=== PATIENT | female | born 1970 | race Caucasian/White ===

== ENCOUNTER → 2017-11-04 | Outpatient (CLI) | payer OTHER ==
--- NOTE | 2017-11-08 08:43 | MM ---
Reason for exam: screening (asymptomatic). Last mammogram was performed 1 year and 1 month ago. History: Family history of breast cancer in mother, breast cancer in maternal grandmother, and breast cancer in 2 maternal aunts. Physical Findings: A clinical breast exam by your physician is recommended on an annual basis and results should be correlated with mammographic findings. MG 3D Screening Mammo W/Cad Bilateral CC and MLO view(s) were taken. Prior study comparison: October 07, 2016, bilateral MG 3d screening mammo w/cad. September 30, 2015, bilateral MG screening mammo w CAD. The breast tissue is heterogeneously dense. This may lower the sensitivity of mammography. No significant changes when compared with prior studies. ASSESSMENT: Negative, BI-RAD 1 RECOMMENDATION: Routine screening mammogram of both breasts in 1 year.
== END | disposition home or self-care (01) ==
LOC: RADMAMWWP 10:10
PROVIDERS: ATTEND Obstetrics & Gynecology
DX: Z12.31 Encounter for screening mammogram for malignant neoplasm of breast (principal)
CPT/HCPCS: 77063; 77067

== ENCOUNTER → 2018-11-17 | Outpatient (CLI) | payer OTHER ==
--- NOTE | 2018-11-17 13:46 | MM ---
Reason for exam: screening (asymptomatic). Last mammogram was performed 1 year ago. History: Patient is postmenopausal. Family history of breast cancer in mother, breast cancer in maternal grandmother, and breast cancer in 2 maternal aunts. Physical Findings: A clinical breast exam by your physician is recommended on an annual basis and results should be correlated with mammographic findings. MG 3D Screening Mammo W/Cad Bilateral CC and MLO view(s) were taken. Prior study comparison: November 04, 2017, bilateral MG 3d screening mammo w/cad. October 07, 2016, bilateral MG 3d screening mammo w/cad. The breast tissue is heterogeneously dense. This may lower the sensitivity of mammography. There is chronic nodularity in the left breast. There is no discrete abnormality. ASSESSMENT: Benign, BI-RAD 2 RECOMMENDATION: Routine screening mammogram of both breasts in 1 year.
== END | disposition home or self-care (01) ==
LOC: RADMAMWWP 08:31
PROVIDERS: ATTEND Obstetrics & Gynecology
DX: Z12.31 Encounter for screening mammogram for malignant neoplasm of breast (principal); Z80.3 Family history of malignant neoplasm of breast
CPT/HCPCS: 77063; 77067

== ENCOUNTER 2018-11-29 23:31 | Emergency (ER) | payer OTHER ==
--- NOTE | 2018-11-29 23:57 | ED ---
Abdominal Pain HPI - General Chief Complaint: Abdominal Pain Stated Complaint: Upper Abd Pain Time Seen by Provider: 11/29/18 23:45 Source: patient Mode of arrival: ambulatory Limitations: no limitations - History of Present Illness Initial Comments: This patient is a 47-year-old woman who presents to be evaluated for epigastric pain that is been going on for approximately 3 hours. Patient states pain is moderate, aching, and it does feel as if it radiates around the right side. She has had a little bit of nausea. Patient denies any urinary symptoms. She states that she did have one loose bowel movement. No blood or dark tarry stools. She had eaten dinner approximately 2 hours prior. The patient states she had tried an antacid without much change, she also took without knowing much difference and also drank jamie mandie with not much change. MD Complaint: abdominal pain Onset/Timin -: hour(s) Location: epigastric Radiation: R flank Migration to: no migration Severity: moderate Quality: aching Consistency: constant Improves With: nothing Worsens With: nothing Associated Symptoms: nausea Treatments Prior to Arrival: antacids - Related Data Home Medications Medication Instructions Recorded Confirmed Losartan/Hydrochlorothiazide 1 each PO DAILY 07/01/16 11/29/18 [Losartan-Hctz 50-12.5 mg Tab] Previous Rx's Medication Instructions Recorded Famotidine [Pepcid] 20 mg PO BID #14 tablet 11/30/18 Lidocaine Viscous [Xylocaine 5 ml PO Q3HR PRN #100 ml 11/30/18 Viscous 2%] Allergies Allergy/AdvReac Type Severity Reaction Status Date / Time No Known Allergies Allergy Verified 07/05/16 11:20 Review of Systems ROS Statement: Those systems with pertinent positive or pertinent negative responses have been documented in the HPI. ROS Other: All systems not noted in ROS Statement are negative. Constitutional: Denies: fever, chills Respiratory: Denies: cough, dyspnea Cardiovascular: Denies: chest pain, palpitations, edema Gastrointestinal: Reports: abdominal pain, nausea. Denies: vomiting, diarrhea, constipation, melena, hematochezia Genitourinary: Denies: dysuria, hematuria Musculoskeletal: Denies: back pain Skin: Denies: rash Neurological: Denies: headache Past Medical History Past Medical History: Hypertension Additional Past Medical History / Comment(s): borderline cholesterol-no rx, History of Any Multi-Drug Resistant Organisms: None Reported Past Surgical History: Orthopedic Surgery, Uterine Ablation Additional Past Surgical History / Comment(s): mult D&C, laproscopy, left knee arthroscopy, carpal tunnel Past Anesthesia/Blood Transfusion Reactions: No Reported Reaction Past Psychological History: No Psychological Hx Reported Smoking Status: Never smoker Past Alcohol Use History: Rare Past Drug Use History: None Reported - Past Family History Mother Family Medical History: Cancer General Exam Limitations: no limitations General appearance: alert, in no apparent distress Head exam: Present: atraumatic, normocephalic Eye exam: Present: normal appearance. Absent: scleral icterus, conjunctival injection ENT exam: Present: normal oropharynx Neck exam: Present: normal inspection Respiratory exam: Present: normal lung sounds bilaterally. Absent: respiratory distress, wheezes, rales, rhonchi, stridor Cardiovascular Exam: Present: regular rate, normal rhythm, normal heart sounds. Absent: systolic murmur, diastolic murmur, rubs, gallop GI/Abdominal exam: Present: soft. Absent: distended, tenderness, guarding, rebound, rigid, mass, pulsatile mass, hernia Extremities exam: Present: normal inspection, normal capillary refill. Absent: pedal edema, calf tenderness Back exam: Present: normal inspection. Absent: CVA tenderness (R), CVA tenderness (L) Neurological exam: Present: alert Skin exam: Present: warm, dry, intact, normal color. Absent: rash Course Vital Signs 11/29/18 23:40 Temperature 98.5 F Pulse Rate 73 Respiratory 20 Rate Blood Pressure 153/90 O2 Sat by Pulse 98 Oximetry Medical Decision Making - Medical Decision Making Patient is a 47-year-old woman with epigastric abdominal pain. She has had marked relief of symptoms with GI cocktail. Lab studies are unremarkable. She is feeling well and would like to go home. Discussed with patient further care and follow-up as well as return parameters. Will provide Pepcid twice a day for 1 week. Patient also given prescription for right upper quadrant ultrasound to schedule at her convenience. - Lab Data Result diagrams: 11/29/18 23:35 11/29/18 23:35 Lab Results 11/29/18 11/29/18 11/29/18 Range/Units 23:35 23:35 23:35 WBC 7.6 (3.8-10.6) k/uL RBC 4.57 (3.80-5.40) m/uL Hgb 13.8 (11.4-16.0) gm/dL Hct 40.3 (34.0-46.0) % MCV 88.3 (80.0-100.0) fL MCH 30.2 (25.0-35.0) pg MCHC 34.2 (31.0-37.0) g/dL RDW 12.3 (11.5-15.5) % Plt Count 355 (150-450) k/uL Neutrophils % 75 % Lymphocytes % 18 % Monocytes % 4 % Eosinophils % 2 % Basophils % 0 % Neutrophils # 5.7 (1.3-7.7) k/uL Lymphocytes # 1.4 (1.0-4.8) k/uL Monocytes # 0.3 (0-1.0) k/uL Eosinophils # 0.1 (0-0.7) k/uL Basophils # 0.0 (0-0.2) k/uL Sodium 139 (137-145) mmol/L Potassium 3.7 (3.5-5.1) mmol/L Chloride 103 (98-107) mmol/L Carbon Dioxide 26 (22-30) mmol/L Anion Gap 10 mmol/L BUN 14 (7-17) mg/dL Creatinine 0.67 (0.52-1.04) mg/dL Est GFR (CKD-EPI)AfAm >90 (>60 ml/min/1.73 sqM) Est GFR (CKD-EPI)NonAf >90 (>60 ml/min/1.73 sqM) Glucose 91 (74-99) mg/dL Calcium 10.4 H (8.4-10.2) mg/dL Total Bilirubin 0.3 (0.2-1.3) mg/dL AST 22 (14-36) U/L ALT 26 (9-52) U/L Alkaline Phosphatase 46 (38-126) U/L Troponin I <0.012 (0.000-0.034) ng/mL Total Protein 7.6 (6.3-8.2) g/dL Albumin 4.5 (3.5-5.0) g/dL Amylase 38 (30-110) U/L Lipase 168 (23-300) U/L Urine Color Urine Appearance (Clear) Urine pH (5.0-8.0) Ur Specific [place] (1.001-1.035) Urine Protein (Negative) Urine Glucose (UA) (Negative) Urine Ketones (Negative) Urine Blood (Negative) Urine Nitrite (Negative) Urine Bilirubin (Negative) Urine Urobilinogen (<2.0) mg/dL Ur Leukocyte Esterase (Negative) Urine RBC (0-5) /hpf Urine WBC (0-5) /hpf Ur Squamous Epith Cells (0-4) /hpf Urine Bacteria (None) /hpf Urine Mucus (None) /hpf Urine HCG, Qual (Not Detectd) 11/30/18 11/30/18 Range/Units 00:10 00:10 WBC (3.8-10.6) k/uL RBC (3.80-5.40) m/uL Hgb (11.4-16.0) gm/dL Hct (34.0-46.0) % MCV (80.0-100.0) fL MCH (25.0-35.0) pg MCHC (31.0-37.0) g/dL RDW (11.5-15.5) % Plt Count (150-450) k/uL Neutrophils % % Lymphocytes % % Monocytes % % Eosinophils % % Basophils % % Neutrophils # (1.3-7.7) k/uL Lymphocytes # (1.0-4.8) k/uL Monocytes # (0-1.0) k/uL Eosinophils # (0-0.7) k/uL Basophils # (0-0.2) k/uL Sodium (137-145) mmol/L Potassium (3.5-5.1) mmol/L Chloride (98-107) mmol/L Carbon Dioxide (22-30) mmol/L Anion Gap mmol/L BUN (7-17) mg/dL Creatinine (0.52-1.04) mg/dL Est GFR (CKD-EPI)AfAm (>60 ml/min/1.73 sqM) Est GFR (CKD-EPI)NonAf (>60 ml/min/1.73 sqM) Glucose (74-99) mg/dL Calcium (8.4-10.2) mg/dL Total Bilirubin (0.2-1.3) mg/dL AST (14-36) U/L ALT (9-52) U/L Alkaline Phosphatase (38-126) U/L Troponin I (0.000-0.034) ng/mL Total Protein (6.3-8.2) g/dL Albumin (3.5-5.0) g/dL Amylase (30-110) U/L Lipase (23-300) U/L Urine Color Light Yellow Urine Appearance Clear (Clear) Urine pH 5.5 (5.0-8.0) Ur Specific [place] 1.005 (1.001-1.035) Urine Protein Negative (Negative) Urine Glucose (UA) Negative (Negative) Urine Ketones Negative (Negative) Urine Blood Small H (Negative) Urine Nitrite Negative (Negative) Urine Bilirubin Negative (Negative) Urine Urobilinogen <2.0 (<2.0) mg/dL Ur Leukocyte Esterase Negative (Negative) Urine RBC 3 (0-5) /hpf Urine WBC 1 (0-5) /hpf Ur Squamous Epith Cells 2 (0-4) /hpf Urine Bacteria Rare H (None) /hpf Urine Mucus Rare H (None) /hpf Urine HCG, Qual Not Detected (Not Detectd) - EKG Data -: EKG Interpreted by Ks EKG shows normal: sinus rhythm, axis (Normal), intervals (Normal), QRS complexes (Normal) Rate: normal (Approximately 70 bpm) Disposition Clinical Impression: Abdominal pain Disposition: HOME SELF-CARE Condition: Good Instructions (If sedation given, give patient instructions): Abdominal Pain (ED ) Prescriptions: Famotidine [Pepcid] 20 mg PO BID #14 tablet Lidocaine Viscous [Xylocaine Viscous 2%] 5 ml PO Q3HR PRN #100 ml PRN Reason: Sore Throat Is patient prescribed a controlled substance at d/c from ED?: No Referrals: Margo Kirkpatrick DO [Doctor of Osteopathic Medicine] - 1-2 days Shelby Aadms MD [STAFF PHYSICIAN] - 1-2 days
[2018-11-30] MEDS ORDERED: MAG HYDROX/AL HYDROX/SIMETH 30 ML, HYOSCYAMINE ELIXIR 10 ML, CIMETIDINE HCL 300 MG, LID... PO STA ×4 (00:10)
[2018-11-30 00:17] LABS: Basophils % (A) 0 %; Eosinophils # (A) 0.1 k/uL (0-0.7); Eosinophils % (A) 2 %; HCT 40.3 % (34.0-46.0); HGB 13.8 gm/dL (11.4-16.0); Lymphocytes # (A) 1.4 k/uL (1.0-4.8); Lymphocytes % (A) 18 %; MCH 30.2 pg (25.0-35.0); MCHC 34.2 g/dL (31.0-37.0); MCV 88.3 fL (80.0-100.0); Mean Platelet Volume 6.3; Monocytes # (A) 0.3 k/uL (0-1.0); Monocytes % (A) 4 %; Neutrophils # (A) 5.7 k/uL (1.3-7.7); Neutrophils % (A) 75 %; Platelet Count 355 k/uL (150-450); RBC 4.57 m/uL (3.80-5.40); RDW 12.3 % (11.5-15.5); WBC 7.6 k/uL (3.8-10.6)
[2018-11-30 00:23] LABS: ALT 26 U/L (9-52); AST 22 U/L (14-36); Albumin 4.5 g/dL (3.5-5.0); Alkaline Phosphatase 46 U/L (38-126); Amylase 38 U/L (30-110); Anion Gap 10 mmol/L; Blood Urea Nitrogen 14 mg/dL (7-17); Calcium 10.4 mg/dL (8.4-10.2); Carbon Dioxide 26 mmol/L (22-30); Chloride 103 mmol/L (98-107); Glucose 91 mg/dL (74-99); Lipase 168 U/L (23-300); Potassium 3.7 mmol/L (3.5-5.1); Sodium 139 mmol/L (137-145); Total Bilirubin 0.3 mg/dL (0.2-1.3); Total Protein 7.6 g/dL (6.3-8.2)
[2018-11-30 00:43] LABS: Appearance,Urine Clear (Clear); Bacteria,Urine Rare /hpf; Bilirubin,Urine Negative (Negative); Blood,Urine Small (Negative); Color,Urine Light Yellow; Glucose,Urine (UA) Negative (Negative); Ketones,Urine Negative (Negative); Leukocyte Esterase,Urine Negative (Negative); Mucus,Urine Rare /hpf; Nitrite,Urine Negative (Negative); PH, Urine 5.5 (5.0-8.0); Protein,Urine Negative (Negative); RBC,Urine 3 /hpf (0-5); Specific Gravity,Urine 1.005 (1.001-1.035); Squamous Epithelial Cell,Urine 2 /hpf (0-4); Urobilinogen,Urine <2.0 mg/dL (<2.0); WBC,Urine 1 /hpf (0-5)
[2018-11-30 01:40] VITALS: BP 127/82; PULSE 63; RESP 18; TEMP 98.4
== END 2018-11-30 01:41 | disposition home or self-care (01) ==
LOC: EC 23:31
DX: R10.13 Epigastric pain (principal); R11.0 Nausea; I10 Essential (primary) hypertension; Z79.899 Other long term (current) drug therapy
CPT/HCPCS: 36415; 80053; 81001; 81025; 82150; 83690; 84484; 85025; 93005; 99284

== ENCOUNTER → 2018-12-01 | Outpatient (CLI) | payer OTHER ==
--- NOTE | 2018-12-01 08:13 | US ---
EXAMINATION TYPE: US abdomen complete DATE OF EXAM: 12/01/2018 COMPARISON: NONE CLINICAL HISTORY: R10.84 Abdominal Pain. EXAM MEASUREMENTS: Liver Length: 13.6 cm Gallbladder Wall: 0.2 cm CBD: 0.4 cm Spleen: 8.9 cm Right Kidney: 10.1 x 4.1 x 4.4 cm Left Kidney: 9.5 x 5.3 x 4.4 cm Pancreas: Tail obscured by overlying bowel gas, visualized portions wnl Liver: wnl Gallbladder: wnl Evidence for sonographic Mccollum's sign: No CBD: wnl Spleen: wnl Right Kidney: No hydronephrosis or masses seen Left Kidney: No hydronephrosis or masses seen Upper IVC: wnl Abd Aorta: wnl The liver is homogenous. The intrahepatic portion of the IVC and proximal abdominal aorta are within normal limits. There is no evidence of cholelithiasis. Common bile duct is unremarkable. The visu alized portions of the pancreas are homogenous. The spleen is unremarkable. Kidneys are symmetric a nd free of hydronephrosis. No renal lesions are seen. IMPRESSION: Unremarkable abdominal ultrasound. No sonographic evidence of cholelithiasis nor acute ch olecystitis.
== END ==
LOC: RADUSWWP 07:31
PROVIDERS: ATTEND Emergency Medicine
DX: R10.84 Generalized abdominal pain (principal)
CPT/HCPCS: 76700

== ENCOUNTER → 2019-11-27 | Outpatient (CLI) | payer OTHER ==
--- NOTE | 2019-11-28 10:39 | MM ---
Reason for exam: screening (asymptomatic). Last mammogram was performed 1 year ago. History: Patient is postmenopausal. Family history of breast cancer in mother, breast cancer in maternal grandmother, and breast cancer in 2 maternal aunts. Physical Findings: A clinical breast exam by your physician is recommended on an annual basis and results should be correlated with mammographic findings. MG 3D Screening Mammo W/Cad Bilateral CC and MLO view(s) were taken. Prior study comparison: November 17, 2018, bilateral MG 3d screening mammo w/cad. November 04, 2017, bilateral MG 3d screening mammo w/cad. The breast tissue is heterogeneously dense. This may lower the sensitivity of mammography. No suspicious abnormality. No significant changes when compared with prior studies. ASSESSMENT: Negative, BI-RAD 1 RECOMMENDATION: Routine screening mammogram of both breasts in 1 year.
== END ==
LOC: RADMAMWWP 09:33
PROVIDERS: ATTEND Obstetrics & Gynecology
DX: Z12.31 Encounter for screening mammogram for malignant neoplasm of breast (principal)
CPT/HCPCS: 77063; 77067

== ENCOUNTER → 2020-12-01 | Outpatient (CLI) | payer OTHER ==
--- NOTE | 2020-12-03 08:42 | MM ---
Reason for exam: screening (asymptomatic). Last mammogram was performed 1 year ago. History: Family history of breast cancer in mother, breast cancer in maternal grandmother, and breast cancer in 2 maternal aunts. Took hormonal contraceptives for 12 years. Physical Findings: A clinical breast exam by your physician is recommended on an annual basis and results should be correlated with mammographic findings. MG 3D Screening Mammo W/Cad Bilateral CC and MLO view(s) were taken. Prior study comparison: November 27, 2019, bilateral MG 3d screening mammo w/cad. November 17, 2018, bilateral MG 3d screening mammo w/cad. The breast tissue is heterogeneously dense. This may lower the sensitivity of mammography. No significant changes when compared with prior studies. ASSESSMENT: Benign, BI-RAD 2 RECOMMENDATION: Routine screening mammogram of both breasts in 1 year.
== END | disposition home or self-care (01) ==
LOC: RADMAMWWP 07:50
PROVIDERS: ATTEND Obstetrics & Gynecology
DX: Z12.31 Encounter for screening mammogram for malignant neoplasm of breast (principal); Z80.3 Family history of malignant neoplasm of breast
CPT/HCPCS: 77063; 77067

== ENCOUNTER → 2021-12-03 | Outpatient (CLI) | payer OTHER ==
--- NOTE | 2021-12-04 13:31 | MM ---
Reason for exam: screening (asymptomatic). Last mammogram was performed 1 year ago. History: Family history of breast cancer in mother, breast cancer in maternal grandmother, and breast cancer in 2 maternal aunts. Took hormonal contraceptives for 12 years. Physical Findings: A clinical breast exam by your physician is recommended on an annual basis and results should be correlated with mammographic findings. MG 3D Screening Mammo W/Cad Bilateral CC and MLO view(s) were taken. Prior study comparison: December 01, 2020, bilateral MG 3d screening mammo w/cad. November 27, 2019, bilateral MG 3d screening mammo w/cad. The breast tissue is heterogeneously dense. This may lower the sensitivity of mammography. There is no discrete abnormality. No significant changes when compared with prior studies. ASSESSMENT: Negative, BI-RAD 1 RECOMMENDATION: Routine screening mammogram of both breasts in 1 year.
== END | disposition home or self-care (01) ==
LOC: RADMAMWWP 13:34
PROVIDERS: ATTEND Obstetrics & Gynecology
DX: Z12.31 Encounter for screening mammogram for malignant neoplasm of breast (principal); Z80.3 Family history of malignant neoplasm of breast
CPT/HCPCS: 77063; 77067

== ENCOUNTER → 2022-02-19 | Outpatient (CLI) | payer OTHER ==
--- NOTE | 2022-02-19 11:52 | BD ---
EXAMINATION TYPE: Axial Bone Density DATE OF EXAM: 02/19/2022 COMPARISON: NONE CLINICAL HISTORY: 51 years year old Female. ICD-10 CODE: N95.1 MENOPAUSAL AND FEMALE CLIMACTERIC STA JAMAR Height: 63.4 Weight: 146 FRAX RISK QUESTIONS: Family History (Parent hip fracture): YES History of Fracture in Adulthood: YES RISK FACTORS HISTORY OF: HX OF LT ANKLE FX AT AGE 49 YRS OLD, SURGICAL REPAIR Family History of Osteoporosis: YES, GR. MOTHER GR. AUNT AND MOTHER ALL WITH HIP FXS Active: YES Postmenopausal woman: ABLATION, AT AGE 41 YRS OLD, UNSURE ABOUT MENOPAUSE. Hyperparathyroidism: NO Adrenal Insufficiency: NO MEDICATIONS: Additional Medications: BP MEDS, VIT D AND CALCIUM.. Additional History: HYPERTENSION, HX OF ADULT FX EXAM MEASUREMENTS: Bone mineral densitometry was performed using the [employer] System. Bone mineral density as measured about the Lumbar spine is: ----- L1-L4(G/cm2): 1.336 T Score Values are as follows: ----- L1: 0.8 ----- L2: 0.4 ----- L3: 2.0 ----- L4: 1.6 ----- L1-L4: 1.3 Bone mineral density FIRST DEXA SCAN.....BASELINE STUDY Bone mineral density about the R hip (g/cm2): 1.001 Bone mineral density about the L hip (g/cm2): 1.056 T Score values are as follows: -----R Neck: -0.1 -----L Neck: 0.0 -----R Total: -0.1 -----L Total: 0.4 Bone mineral density BASELINE STUDY FRAX%s: The graph provided illustrates a 14.7% chance for a major osteoporotic fx and a 0.2% chance f or the hips probability for fx in 10 years time. IMPRESSION: No evidence for osteoporosis or osteopenia NOTE: T-SCORE=SD OF THE YOUNG ADULT MEAN.
== END | disposition home or self-care (01) ==
LOC: RADBDWWP 10:00
PROVIDERS: ATTEND Obstetrics & Gynecology
DX: N95.1 Menopausal and female climacteric states (principal)
CPT/HCPCS: 77080

== ENCOUNTER 2022-05-18 09:02 | Day surgery (SDC) | payer OTHER ==
[~2022-05-18 09:02] MED LIST: LACTATED RINGERS 1,000 ML IV SCH; LIDOCAINE 1% (10MG/ML) FOR IV START INTRADERMA PRN
[2022-05-18 09:26] VITALS: TEMP 97.7
[2022-05-18] MEDS ORDERED: PROPOFOL 10 MG/ML 20 ML VIAL IV ONE (10:28)
--- NOTE | 2022-05-18 10:46 | P.PCN ---
Date of Procedure: 05/18/22 Procedure(s) Performed: BRIEF HISTORY: Patient is a 51-year-old pleasant female scheduled for an elective colonoscopy as a part of screening for colorectal neoplasia. PROCEDURE PERFORMED: Colonoscopy. PREOPERATIVE DIAGNOSIS: Screening for colon cancer. IV sedation per Anesthesia. PROCEDURE: After informed consent was obtained, the patient, was brought into the endoscopy unit. IV sedation was administered by Anesthesia under continuous monitoring. Digital rectal examination was normal. Initially the Olympus CF-160 flexible video colonoscope was then inserted in the rectum, gradually advanced into the cecum without any difficulty. Careful examination was performed as the scope was gradually being withdrawn. Ileocecal valve and the appendiceal orifice were visualized and appeared normal. Prep was excellent. Mucosa of the cecum, ascending colon, transverse colon, descending colon, sigmoid colon, and rectum appeared normal. Retroflexion was performed in the rectum and and 1 large prolapsing hemorrhoids were seen. The patient tolerated the procedure well. IMPRESSION: Normal-appearing colon from rectum to cecum no evidence of colorectal neoplasia. One large prolapsing internal hemorrhoids RECOMMENDATIONS: Findings of this examination were discussed with the patient as well as her family. She was advised to have a repeat screening colonoscopy in 10 years. She was advised to be a high-fiber diet, take fiber supplements a regular basis and await straining and constipation.
[2022-05-18 11:11] VITALS: BP 115/75; PULSE 63; RESP 16
== END 2022-05-18 11:31 | disposition home or self-care (01) ==
LOC: ORWHC2ENDO 09:02
PROVIDERS: ATTEND Internal Medicine Gastroenterology
DX: Z12.11 Encounter for screening for malignant neoplasm of colon (principal); K64.8 Other hemorrhoids; I10 Essential (primary) hypertension; Z98.890 Other specified postprocedural states; Z97.2 Presence of dental prosthetic device (complete) (partial); Z79.899 Other long term (current) drug therapy
CPT/HCPCS: 81025; J2704; G0121

== ENCOUNTER → 2022-12-30 | Outpatient (CLI) | payer OTHER ==
--- NOTE | 2023-01-02 12:47 | MM ---
Reason for Exam: Screening (asymptomatic). Last mammogram was performed 1 year(s) and 1 month(s) ago. Patient History: Menarche at age 12. First Full-Term at age 30. Late child-bearing (after 30). Patient used Hormonal Contraceptives for 12 years. Maternal grandmother had breast cancer. Maternal aunt had breast cancer. Maternal aunt had breast cancer. Mother had breast cancer. Risk Values: Cindy 5 year model risk: 2.1%. NCI Lifetime model risk: 16.7%. Prior Study Comparison: 11/27/2019 Bilateral Screening Mammogram, [facility]. 12/01/2020 Bilateral Screening Mammogram, [facility]. 12/03/2021 Bilateral Screening Mammogram, [facility]. Tissue Density: There are scattered fibroglandular densities. Findings: Analyzed By CAD. Benign intramammary lymph node upper outer quadrant left breast is unchanged. There is no suspicious group of microcalcifications or new suspicious mass in either breast. Overall Assessment: Benign, BI-RAD 2 Management: Screening Mammogram of both breasts in 1 year. 1. Patient should continue monthly self breast exams. 2. A clinical breast exam by your physician is recommended on an annual basis. 3. This exam should not preclude additional follow-up of suspicious palpable abnormalities. Electronically signed and approved by: Benjamin Emanuel M.D. Radiologist
== END | disposition home or self-care (01) ==
LOC: RADMAMWWP 14:48
PROVIDERS: ATTEND Obstetrics & Gynecology
DX: Z12.31 Encounter for screening mammogram for malignant neoplasm of breast (principal); Z80.3 Family history of malignant neoplasm of breast
CPT/HCPCS: 77063; 77067

== ENCOUNTER → 2024-01-18 | Outpatient (CLI) | payer OTHER ==
--- NOTE | 2024-01-19 11:56 | MR ---
EXAMINATION TYPE: MR shoulder RT wo con DATE OF EXAM: 01/18/2024 COMPARISON: Outside right shoulder x-rays January 05, 2024 HISTORY: Right shoulder pain for 6 months with difficulty raising arm overhead TECHNIQUE: Multiplanar, multisequence imaging of the right shoulder is performed without contrast. FINDINGS: Rotator Cuff: Intact supraspinatus and infraspinatus tendons. Intact subscapularis tendon. Rotator cu ff muscle bulk preserved. Acromioclavicular Joint: Oauj-vm-ldrabnbm narrowing greatest posteriorly. Mild/moderate capsular hype rtrophy. Glenohumeral Joint: Small joint effusion. No significant spurring. Labrum: The labrum appears grossly intact given limitation of non-arthrogram study. Biceps Tendon: The long head of biceps is in normal location within bicipital groove. Bone marrow signal: Subchondral cystic change superolateral aspect of the humeral head. Other: No additional significant abnormality is appreciated. IMPRESSION: No rotator cuff or labral tear is seen.
== END | disposition home or self-care (01) ==
LOC: RADMRIMAIN 20:22
PROVIDERS: ATTEND Orthopaedic Surgery
DX: M25.511 Pain in right shoulder (principal)

== ENCOUNTER 2024-03-20 08:31 | Day surgery (SDC) | payer OTHER ==
[2024-03-16 09:43] VITALS: BMI 24.9
--- NOTE | 2024-03-19 08:44 | P.HPOR ---
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 She notes she is having pain with any attempted overhead use. She is having night symptoms. She's tried therapy in addition to a steroid pack without much relief. Review of Systems Per HPI Past Medical History Past Medical History: Hypertension Additional Past Medical History / Comment(s): borderline cholesterol-no rx, CUREENTLY ON KEFLEX SINCE 03/14/24 FOR INFECTED RT GREAT TOE-INSTRUCTED TO NOTIFY DR. HARRISON History of Any Multi-Drug Resistant Organisms: None Reported Past Surgical History: Orthopedic Surgery, Uterine Ablation Additional Past Surgical History / Comment(s): mult D&C, laparoscopy, left knee arthroscopy, carpal tunnel, ORIF left ankle 2020 Past Anesthesia/Blood Transfusion Reactions: No Reported Reaction Smoking Status: Never smoker - Past Family History Mother Family Medical History: Cancer Medications and Allergies Home Medications Medication Instructions Recorded Confirmed Type Calcium Carbonate [Calcium] 600 mg PO DAILY 05/14/22 03/16/24 History Cholecalciferol [Vitamin D3 (25 25 mcg PO DAILY 05/14/22 03/16/24 History Mcg = 1000 Iu)] Losartan [Cozaar] 50 mg PO DAILY 05/14/22 03/16/24 History Multivitamins, Thera [Multivitamin 1 tab PO DAILY 05/14/22 03/16/24 History (formulary)] hydroCHLOROthiazide [Hydrodiuril] 12.5 mg PO DAILY 05/14/22 03/16/24 History Cephalexin [Keflex] 500 mg PO Q8HR 03/16/24 03/16/24 History Allergies Allergy/AdvReac Type Severity Reaction Status Date / Time No Known Allergies Allergy Verified 03/16/24 09:08 Physical Examination - Shoulder right Tenderness with palpation: anterior, bicipital groove Pain: with abduction, with forward flexion ROM: forward flexion: 140 degrees ROM: internal rotation: lower lumbar ROM: external rotation: 40 degrees Crepitus with motion: Yes Strength: abduction: 5/5 Strength: external rotation: 5/5 Tests: internal impingement tests: positive, external impingment tests: positive Results Patient is a well-developed well-nourished female approximately 5 foot 4, 145 pounds of mesomorphic habitus. HEENT exam is nonfocal, neck supple. She's tender about the anterior subacromial space the right shoulder. Passive forward elevation is 145. Schaffer, Neer sign are positive. Her distal neurovascular appears intact in the right upper extremity. Assessment and Plan Assessment: Right shoulder adhesive capsulitis Plan: Talked to the patient at length regarding her condition at this point she is failing to progress with conservative measures. After a thorough discussion shaft proceed with manipulation right shoulder under anesthesia along with a subacromial cortisone injection. We will likely perform that as a outpatient procedure utilizing IV sedation. Risks and benefits were discussed at length in layman's terms.
[~2024-03-20 08:31] MED LIST changes: -LACTATED RINGERS 1,000 ML IV SCH; +ONDANSETRON 4 MG/2 ML VIAL IVP ONE
[2024-03-20] MEDS: IV FLUID CONTINUATION 1,000 ML IV ONE (08:42)
[2024-03-20 08:47] VITALS: TEMP 97.6
[2024-03-20] MEDS: LACTATED RINGERS 1,000 ML IV SCH (09:08)
[2024-03-20] MEDS: KETOROLAC 15 MG/ML 1 ML VIAL IVP STA (09:45)
[2024-03-20] MEDS ORDERED: fentaNYL (PF) 50 MCG/ML 2 ML AMP ONE (10:10)
[2024-03-20] MEDS ORDERED: LIDOCAINE 1% INJ 10MG/ML (20 ML MDV) ONE (10:10)
[2024-03-20] MEDS ORDERED: PROPOFOL 10 MG/ML 20 ML VIAL IV ONE (10:10)
--- NOTE | 2024-03-20 10:25 | P.OP ---
Date of Procedure: 03/20/24 Preoperative Diagnosis: Right shoulder adhesive capsulitis Postoperative Diagnosis: Same Procedure(s) Performed: Manipulation under anesthesia right shoulder/subacromial cortisone injection Anesthesia: MAC Surgeon: Mehul Holden Estimated Blood Loss (ml): 0 Pathology: none sent Condition: stable Disposition: PACU Indications for Procedure: The patient is a 53-year-old female who presents with progressive right shoulder pain and stiffness despite adequate rehabilitation. Clinically she is known to have significant adhesive capsulitis. A discussion of the risks and benefits of manipulation under anesthesia with subacromial cortisone injection was made with the patient. She opted to proceed with the procedure. Informed consent was obtained. Risks of the procedure to include fracture, recurrence of stiffness, and possible need for subsequent procedures was discussed. Operative Findings: As below Description of Procedure: The patient was brought to the recovery room, and after induction of IV sedation I then gently manipulated the right shoulder. First with the arm at the side obtain full external rotation. Moderate adhesions were encountered. I then obtain full forward elevation. Again moderate adhesions were encountered. I felt I had adequate release at this point. The posterior right shoulder was prepped with ChloraPrep. 80 mg of Depo-Medrol along with 5 cc of quarter percent plain Marcaine was injected into the subacromial space. The patient was then monitored until fully awake. No complications were incurred. There was no blood loss.
[2024-03-20] MEDS: HYDROmorphone 0.5 MG/0.5 ML SYRINGE IVP PRN (10:31)
[2024-03-20] MEDS: HYDROcodone/APAP 5-325MG 1 EACH TAB PO STA (12:16)
[2024-03-20 12:52] VITALS: BP 129/81; PULSE 80; RESP 17
== END 2024-03-20 13:07 | disposition home or self-care (01) ==
LOC: OR 08:31
PROVIDERS: ATTEND Orthopaedic Surgery
DX: M75.01 Adhesive capsulitis of right shoulder (principal); I10 Essential (primary) hypertension; Z98.890 Other specified postprocedural states; Z79.899 Other long term (current) drug therapy
CPT/HCPCS: 23700; 81025; J2001; J3010; J1885; J2704; J1170

== ENCOUNTER → 2025-04-25 | Outpatient (CLI) | payer OTHER ==
--- NOTE | 2025-04-25 08:57 | MM ---
Reason for Exam: Screening (asymptomatic). Last mammogram was performed 1 year(s) and 2 month(s) ago. Patient History: Menarche at age 12. First Full-Term at age 30. Late child-bearing (after 30). Perimenopausal. Patient used Hormonal Contraceptives for 12 years. Maternal grandmother had breast cancer. Maternal aunt had breast cancer. Maternal aunt had breast cancer. Mother had breast cancer, age 64. Mother tested for BRCA1 outcome was negative. Risk Values: Cindy 5 year model risk: 2.3%. NCI Lifetime model risk: 16.2%. Prior Study Comparison: 12/03/2021 Bilateral Screening Mammogram, [facility]. 12/30/2022 Bilateral MG 3D screening mammo w/cad, [facility]. 03/08/2024 Bilateral MG 3D screening mammo w/cad, [facility]. Tissue Density: There are scattered areas of fibroglandular density. Findings: Analyzed By CAD. There is no suspicious group of microcalcifications or new suspicious mass in either breast. Overall Assessment: Negative, BI-RAD 1 Management: Screening Mammogram of both breasts in 1 year. . Patient should continue monthly self-breast exams. A clinical breast exam by your physician is recommended on an annual basis. This exam should not preclude additional follow-up of suspicious palpable abnormalities. Note on Cindy scores and lifetime risk: 1. A Cindy score greater than 3% is considered moderate risk. If this is the case, consider specialist referral to assess eligibility for a risk reducing agent. 2. If overall lifetime risk for the development of breast cancer is 20% or higher, the patient may qualify for future screening with alternating mammogram and breast MRI. [facility], , 04/25/2025 8:53 AM. Electronically signed and approved by: Salvador Alarcon M.D.
== END | disposition home or self-care (01) ==
LOC: RADMAMWWP 08:16
PROVIDERS: ATTEND Obstetrics & Gynecology
DX: Z12.31 Encounter for screening mammogram for malignant neoplasm of breast (principal); R92.323 Mammographic fibroglandular density, bilateral breasts; Z92.0 Personal history of contraception; Z80.3 Family history of malignant neoplasm of breast
CPT/HCPCS: 77063; 77067